=== PATIENT | female | born 2000 | race African-American/Black ===

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

== ENCOUNTER 2021-02-21 10:09 | Emergency (ER) | payer OTHER ==
--- NOTE | 2021-02-21 10:49 | ER ---
Nurse's Notes [facility] Name: Betty Dupree Age: 20 yrs Sex: Female : 2000 Arrival Date: 02/21/2021 Time: 10:09 Bed 15 Private MD: Diagnosis: Otalgia, left ear;Other otitis externa, left ear Presentation: 02/21 10:26 Chief complaint:. Coronavirus screen: Vaccine status: Patient reports receiving the 2nd ll1 dose of the covid vaccine. Client denies travel out of the [place] in the last 14 days. At this time, the client does not indicate any symptoms associated with coronavirus-19. Ebola Screen: Patient denies travel to an Ebola-affected area in the 21 days before illness onset. Risk Assessment: Do you want to hurt yourself or someone else? Patient reports no desire to harm self or others. Onset of symptoms was February 15, 2021. 10:26 Method Of Arrival: Ambulatory ll1 10:26 Acuity: NANDO 4 ll1 10:28 Chief complaint: Patient states: L ear pain, irritation, itching for 1 week. No fever. ll1 Initial Sepsis Screen: Does the patient meet any 2 criteria? No. Patient's initial sepsis screen is negative. Does the patient have a suspected source of infection? Yes: Other: ear. Historical: - Allergies: 10:25 No Known Allergies; ll1 - PMHx: 10:25 None; ll1 - PSHx: 10:25 Tonsillectomy; ll1 - Immunization history:: Client reports receiving the 2nd dose of the Covid vaccine. - Social history:: Smoking status: Patient denies any tobacco usage or history of. - Family history:: not pertinent. - Hospitalizations: : No recent hospitalization is reported. Screenin:41 Abuse screen: Denies threats or abuse. Denies injuries from another. Nutritional jt3 screening: No deficits noted. Tuberculosis screening: No symptoms or risk factors identified. Fall Risk None identified. Assessment: 10:41 General: Appears in no apparent distress. Behavior is calm, cooperative. Pain: jt3 Complains of pain in left ear Quality of pain is described as tingling. Neuro: No deficits noted. EENT: Reports Pt. states she feels she has something in her left ear. Endorses hard of hearing in left ear due to this. Denies dizziness. Alert and oriented x4. . Vital Signs: 10:28 BP 125 / 80; Pulse 70; Resp 17; Temp 97.2; Pulse Ox 100% ; Weight 79.38 kg; Height 5 ll1 ft. 0 in. (152.40 cm); Pain 8/10; 10:28 Body Mass Index 34.18 (79.38 kg, 152.40 cm) ll1 ED Course: 10:09 Patient arrived in ED. as 10:25 Arm band placed on Patient placed in an exam room, on a stretcher. ll1 10:26 Roebrt Martinez MD is Attending Physician. rn 10:26 Triage completed. ll1 10:30 Jax Pope, RN is Primary Nurse. jt3 10:41 Patient has correct armband on for positive identification. Bed in low position. Call jt3 light in reach. Side rails up X2. 10:41 No provider procedures requiring assistance completed. jt3 11:01 Patient did not have IV access during this emergency room visit. ss Administered Medications: No medications were administered Outcome: 10:48 Discharge ordered by . rn 11:01 Discharged to home ambulatory. ss 11:01 Condition: good 11:01 Discharge instructions given to patient, Instructed on discharge instructions, follow up and referral plans. medication usage, Demonstrated understanding of instructions, follow-up care, medications, Prescriptions given X 1. 11:02 Patient left the ED. ss Signatures: Sheyla Carrera Roman, MD MD rn Smirch, Shelby, RN RN Sarina Bess RN RN 1 Jax Pope RN RN jt3
--- NOTE | 2021-02-21 10:49 | EDPHYS ---
Physician Documentation [facility] Name: Betty Dupree Age: 20 yrs Sex: Female : 2000 Arrival Date: 02/21/2021 Time: 10:09 Bed 15 Private MD: ED Physician Robert Martinez HPI: 02/21 10:44 This 20 yrs old Black Female presents to ER via Ambulatory with complaints of Possible rn foreign Body In Ear, Ear Pain. 10:44 The patient presents with a foreign body sensation, a fullness, pain. The complaints rn affect the left ear. Onset: The symptoms/episode began/occurred 1 week(s) ago. Modifying factors: The symptoms are alleviated by nothing, the symptoms are aggravated by nothing. Associated signs and symptoms: Pertinent negatives: fever, rhinorrhea, shortness of breath, sore throat. Severity of symptoms: At their worst the symptoms were mild in the emergency department the symptoms are unchanged. The patient has not experienced similar symptoms in the past. The patient has not recently seen a physician. Patient reports left ear pain and itching. No drainage. No fever. Reports uses hearing aids all the time and left ear seems stopped up. Is not sure if there is a foreign body in it. Has tried washing it out and not working.. Historical: - Allergies: 10:25 No Known Allergies; ll1 - PMHx: 10:25 None; ll1 - PSHx: 10:25 Tonsillectomy; ll1 - Immunization history:: Client reports receiving the 2nd dose of the Covid vaccine. - Social history:: Smoking status: Patient denies any tobacco usage or history of. - Family history:: not pertinent. - Hospitalizations: : No recent hospitalization is reported. ROS: 10:44 Constitutional: Negative for fever, chills, and weight loss, Eyes: Negative for injury, rn pain, redness, and discharge, ENT: Positive for pain in left ear Neck: Negative for injury, pain, and swelling, Cardiovascular: Negative for chest pain, palpitations, and edema, Respiratory: Negative for shortness of breath, cough, wheezing, and pleuritic chest pain, Abdomen/GI: Negative for abdominal pain, nausea, vomiting, diarrhea, and constipation, MS/Extremity: Negative for injury and deformity, Skin: Negative for injury, rash, and discoloration, Neuro: Negative for headache, weakness, numbness, tingling, and seizure. Exam: 10:44 Constitutional: This is a well developed, well nourished patient who is awake, alert, rn and in no acute distress. Head/Face: Normocephalic, atraumatic. Eyes: Periorbital areas with no swelling, redness, or edema. ENT: Left auditory canal with erythema and signs of inflammation. Tympanic membrane normal without perforation/bulging/fluid behind. No foreign body identified Vital Signs: 10:28 BP 125 / 80; Pulse 70; Resp 17; Temp 97.2; Pulse Ox 100% ; Weight 79.38 kg; Height 5 ll1 ft. 0 in. (152.40 cm); Pain 8/10; 10:28 Body Mass Index 34.18 (79.38 kg, 152.40 cm) ll1 MDM: 10:26 Patient medically screened. rn 10:44 Differential diagnosis: otitis media, otitis externa, ruptured TM, foreign body, acute rn otalgia, cerumen impaction. Data reviewed: vital signs, nurses notes, and as a result, I will discharge patient. Counseling: I had a detailed discussion with the patient and/or guardian regarding: the historical points, exam findings, and any diagnostic results supporting the discharge/admit diagnosis, the need for outpatient follow up, to return to the emergency department if symptoms worsen or persist or if there are any questions or concerns that arise at home. Special discussion: I discussed with the patient/guardian in detail that at this point there is no indication for admission to the hospital. It is understood, however, that if the symptoms persist or worsen the patient needs to return immediately for re-evaluation. Administered Medications: No medications were administered Disposition Summary: 02/21/21 10:48 Discharge Ordered Location: Home rn Problem: new rn Symptoms: have improved rn Condition: Stable rn Diagnosis - Otalgia, left ear rn - Other otitis externa, left ear rn Followup: rn - With: Private Physician - When: As needed - Reason: Recheck today's complaints, Re-evaluation by your physician Discharge Instructions: - Discharge Summary Sheet rn - Otitis Externa rn - Earache, Adult rn Forms: - Medication Reconciliation Form rn - Thank You Letter rn - Antibiotic internet consultant - Prescription Opioid Use rn Prescriptions: - Cortisporin-TC 3.3-3-10-0.5 mg/mL Otic Suspension - instill 4 drops by OTIC route every 6 hours; 1 bottle; Refills: 0, Product rn Selection Permitted Signatures: Robert Martinez MD MD rn Lewis, Lynsay, RN RN ll1
[2021-02-21 11:15] VITALS: BP 125/80; TEMP 97.2; O2SAT 100
== END 2021-02-21 11:02 | disposition home or self-care (01) ==
LOC: ER 10:09
DX: H60.8X2 Other otitis externa, left ear (principal)
CPT/HCPCS: 99282

== ENCOUNTER 2021-02-27 11:51 | Emergency (ER) | payer OTHER ==
--- NOTE | 2021-02-27 13:49 | RAD REPORT ---
EXAM DESCRIPTION: Aryan Perez (2 Views)02/27/2021 1:41 pm CLINICAL HISTORY: Cough COMPARISON: 2018 FINDINGS: The lungs appear clear of acute infiltrate. The heart is normal size IMPRESSION: No acute abnormalities displayed
[2021-02-27 14:33] LABS: SARS-COV-2 RT PCR NEGATIVE (NEGATIVE)
--- NOTE | 2021-02-27 14:45 | EDPHYS ---
Physician Documentation [facility] Name: Betty Dupree Age: 20 yrs Sex: Female : 2000 Arrival Date: 02/27/2021 Time: 11:56 Bed Waiting Private MD: ED Physician Freddie Wetzel HPI: 02/27 14:44 This 20 yrs old Black Female presents to ER via Ambulatory with complaints of Fever, kb Sore Throat, Headache, Weakness. 14:44 The patient has not recently seen a physician. kb 14:44 The patient or guardian reports cough, flu symptoms, low-grade fever, myalgias, no kb appetite. Onset: The symptoms/episode began/occurred yesterday. Severity of symptoms: At their worst the symptoms were moderate, in the emergency department the symptoms are unchanged. Modifying factors: The symptoms are alleviated by nothing, the symptoms are aggravated by nothing. Associated signs and symptoms: Pertinent positives: fever, rhinorrhea, sore throat. The patient has not experienced similar symptoms in the past. 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 - Social history:: Smoking status: Patient denies any tobacco usage or history of. ROS: 14:43 Abdomen/GI: Negative for abdominal pain, nausea, vomiting, diarrhea, and constipation. kb 14:43 Constitutional: Positive for body aches, chills, fatigue, fever, malaise. 14:43 ENT: Positive for rhinorrhea, sinus congestion, sore throat. 14:43 Respiratory: Positive for cough, Negative for dyspnea on exertion, hemoptysis, orthopnea, pleurisy, shortness of breath, sputum production, wheezing. 14:43 Neuro: Positive for headache. 14:43 All other systems are negative. Exam: 14:44 Constitutional: This is a well developed, well nourished patient who is awake, alert, kb and in no acute distress. Head/Face: Normocephalic, atraumatic. ENT: Moist Mucous membranes Cardiovascular: Regular rate and rhythm with a normal S1 and S2. No gallops, murmurs, or rubs. No pulse deficits. Respiratory: Respirations even and unlabored. No increased work of breathing, no retractions or nasal flaring. Skin: Warm, dry with normal turgor. Normal color. MS/ Extremity: Pulses equal, no cyanosis. Neurovascular intact. Full, normal range of motion. Neuro: Awake and alert, GCS 15, oriented to person, place, time, and situation. Moves all extremities. Normal gait. Psych: Awake, alert, with orientation to person, place and time. Behavior, mood, and affect are within normal limits. Vital Signs: 13:03 BP 119 / 73; Pulse 76; Resp 18 S; Temp 97.7(O); Pulse Ox 100% on R/A; aa5 MDM: 13:09 Patient medically screened. kb 14:41 Data reviewed: vital signs, nurses notes. Data interpreted: Pulse oximetry: on room air kb is 100 %. Interpretation: normal. Counseling: I had a detailed discussion with the patient and/or guardian regarding: the historical points, exam findings, and any diagnostic results supporting the discharge/admit diagnosis, the need for outpatient follow up, a family practitioner, to return to the emergency department if symptoms worsen or persist or if there are any questions or concerns that arise at home. 02/27 13:08 Order name: COVID-19/FLU A+B (Document "Date of Onset" if Symptomatic) 02/27 13:08 Order name: Strep 02/27 13:08 Order name: Chest Pa And Lat (2 Views) XRAY; Complete Time: 13:52 02/27 13:09 Order name: COVID-19/FLU A+B; Complete Time: 14:36 EDMS 02/27 13:09 Order name: Group A Streptococcus Rapid Sc; Complete Time: 14:19 EDMS 02/27 14:19 Order name: Throat Culture EDMS Administered Medications: No medications were administered Disposition: 17:32 Co-signature as Attending Physician, Freddie Wetzel MD I agree with the assessment and kdr plan of care. Disposition Summary: 02/27/21 14:45 Discharge Ordered Location: Home kb Condition: Stable kb Diagnosis - Acute upper respiratory infection, unspecified kb Followup: kb - With: Emergency Department - When: As needed - Reason: Worsening of condition Followup: kb - With: Private Physician - When: 2 - 3 days - Reason: Recheck today's complaints, Continuance of care, Re-evaluation by your physician Discharge Instructions: - Discharge Summary Sheet kb - Upper Respiratory Infection, Adult, [id number] kb - Viral Respiratory Infection, [id number] kb Forms: - Medication Reconciliation Form kb - Thank You Letter kb - Antibiotic Education kb - Prescription Opioid Use kb - Work release form iw Signatures: Dispatcher [employer] EDJohana Duncan, RAW MATERIAL PLANNER-C KAYLIE-Freddie Norwood MD MD kdr Calderon, Audri, RN RN aa5
--- NOTE | 2021-02-27 14:45 | ER ---
Nurse's Notes [facility] Name: Betty Dupree Age: 20 yrs Sex: Female : 2000 Arrival Date: 02/27/2021 Time: 11:56 Bed Waiting Private MD: Diagnosis: Acute upper respiratory infection, unspecified Presentation: 02/27 13:03 Chief complaint: Patient states: sore throat, cough, headache, chills, and body aches aa5 since yesterday. Coronavirus screen: cough unrelated to allergies, headache, muscle pain, sore throat. Ebola Screen: No symptoms or risks identified at this time. Initial Sepsis Screen: Does the patient meet any 2 criteria? No. Patient's initial sepsis screen is negative. Does the patient have a suspected source of infection? No. Patient's initial sepsis screen is negative. Risk Assessment: Do you want to hurt yourself or someone else? Patient reports no desire to harm self or others. Onset of symptoms was February 2021. 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 - Social history:: Smoking status: Patient denies any tobacco usage or history of. Assessment: 15:08 Neuro: Level of Consciousness is awake, alert, obeys commands, Oriented to person, aa5 place, time, situation. Respiratory: Airway is patent Respiratory effort is even, unlabored, Respiratory pattern is regular, symmetrical. Derm: Skin is dry, Skin is normal, Skin temperature is warm. Vital Signs: 13:03 BP 119 / 73; Pulse 76; Resp 18 S; Temp 97.7(O); Pulse Ox 100% on R/A; aa5 ED Course: 11:56 Patient arrived in ED. as 13:03 Arm band placed on. aa5 13:05 Triage completed. aa5 13:05 Johana Rivera FNP-C is [facility]. kb 13:05 Freddie Wetzel MD is Attending Physician. kb 13:11 COVID swab sent to lab. Flu and/or RSV swab sent to lab. Strep swab sent to lab. aa5 13:41 Chest Pa And Lat (2 Views) XRAY In Process Unspecified. EDMS 15:08 No provider procedures requiring assistance completed. Patient did not have IV access aa5 during this emergency room visit. Administered Medications: No medications were administered Outcome: 14:45 Discharge ordered by . tiara 15:08 Discharged to home ambulatory. aa5 15:08 Condition: stable 15:08 Discharge instructions given to patient, Instructed on discharge instructions, follow up and referral plans. Demonstrated understanding of instructions, follow-up care. 15:11 Patient left the ED. aa5 Signatures: Dispatcher [employer] EDJohana Duncan, MANAGER RESEARCH AND DEVELOPMENT-C MANAGER RESEARCH AND DEVELOPMENT-Sheyla Cueva Audri, RN RN aa5 Corrections: (The following items were deleted from the chart) 13:06 13:03 Chief complaint: Patient states: sore throat, cough, headache, chills, and body aa5 aches. aa5
[2021-02-27 15:21] VITALS: BP 119/73; TEMP 97.7; O2SAT 100
== END 2021-02-27 15:11 | disposition home or self-care (01) ==
LOC: ER 11:51
DX: J06.9 Acute upper respiratory infection, unspecified (principal); Z20.822 Contact with and (suspected) exposure to COVID-19
CPT/HCPCS: 87070; 87081; 0240U; 71046; 99283

== ENCOUNTER 2021-04-14 13:28 | Emergency (ER) | payer OTHER ==
[2021-04-14 15:28] LABS: SARS-COV-2 RT PCR POSITIVE (NEGATIVE)
--- NOTE | 2021-04-14 16:12 | EDPHYS ---
Physician Documentation [facility] Name: Betty Dupree Age: 20 yrs Sex: Female : 2000 Arrival Date: 04/14/2021 Time: 13:29 Bed Treatment Private MD: ED Physician Esperanza Maynard HPI: 04/14 16:05 This 20 yrs old Black Female presents to ER via Ambulatory with complaints of Cough, cp Headache, Runny Nose, Sore Throat. 16:05 The patient or guardian reports cough, that is intermittent. Onset: The cp symptoms/episode began/occurred yesterday. Associated signs and symptoms: Pertinent positives: rhinorrhea, sore throat, headache. Patient reports she is vaccinated against COVID-19. 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 - Social history:: Smoking status: Patient denies any tobacco usage or history of. ROS: 16:07 Eyes: Negative for injury, pain, redness, and discharge. cp 16:07 Constitutional: Positive for body aches, Negative for fever, poor PO intake. 16:07 ENT: Positive for sore throat, Negative for drainage from ear(s), ear pain, difficulty swallowing, difficulty handling secretions. 16:07 Respiratory: Positive for cough, Negative for shortness of breath, wheezing. 16:07 Abdomen/GI: Negative for abdominal pain, nausea, vomiting, and diarrhea. 16:07 Neuro: Positive for headache, Negative for altered mental status, weakness. 16:07 All other systems are negative. Exam: 16:08 Head/Face: Normocephalic, atraumatic. cp 16:08 Constitutional: The patient appears in no acute distress, alert, awake, non-toxic, well developed, well nourished. 16:08 Eyes: Periorbital structures: appear normal, Conjunctiva: normal, no exudate, no injection, Lids and lashes: appear normal, bilaterally. 16:08 ENT: External ear(s): are unremarkable, Nose: is normal, Mouth: Lips: moist, Oral mucosa: moist, Posterior pharynx: Airway: no evidence of obstruction, patent. 16:08 Neck: ROM/movement: is normal, is supple, without pain, no range of motions limitations, no meningismus, Lymph nodes: no appreciated lymphadenopathy. 16:08 Chest/axilla: Inspection: normal. 16:08 Cardiovascular: Rate: normal. 16:08 Respiratory: the patient does not display signs of respiratory distress, Respirations: normal, no use of accessory muscles, no retractions, labored breathing, is not present, Breath sounds: are clear throughout, no decreased breath sounds, no stridor, no wheezing. 16:08 Abdomen/GI: Exam negative for discomfort, distension, guarding, Inspection: abdomen appears normal. 16:08 Neuro: Orientation: to person, place \T\ time. Mentation: is normal, Motor: moves all fours, strength is normal, Sensation: is normal. Vital Signs: 13:41 BP 125 / 91; Pulse 79; Resp 17; Temp 98.1(TE); Pulse Ox 99% on R/A; Pain 8/10; tw2 MDM: 15:59 Patient medically screened. cp 16:10 Differential Diagnosis: Bronchitis Influenza Viral Syndrome Pneumonia Other COVID-19. cp Data reviewed: vital signs, nurses notes, lab test result(s), and as a result, I will discharge patient. 04/14 13:36 Order name: Strep; Complete Time: 15:59 jh5 04/14 15:59 Interpretation: Reviewed. cp 04/14 13:36 Order name: Group A Streptococcus Rapid Sc; Complete Time: 15:59 EDMS 04/14 13:59 Order name: Throat Culture EDMS Administered Medications: No medications were administered Disposition Summary: 04/14/21 16:12 Discharge Ordered Location: Home cp Problem: new cp Symptoms: are unchanged cp Condition: Stable cp Diagnosis - SARS-associated coronavirus as the cause of diseases classified elsewhere cp Followup: cp - With: Private Physician - When: 2 - 3 days - Reason: Worsening of condition Discharge Instructions: - COVID-19 cp - Things to Know about the COVID-19 Pandemic - [facility] cp - Discharge Summary Sheet tw2 - 10 Things You Can Do to Manage Your COVID-19 Symptoms at Home - [facility] cp - COVID-19: Quarantine vs. Isolation - [facility] cp - Prevent the Spread of COVID-19 if You Are Sick - [facility] cp Forms: - Work release form tw2 - Medication Reconciliation Form cp - Thank You Letter cp - Antibiotic Education cp - Prescription Opioid Use cp Prescriptions: - Ibuprofen 800 mg Oral Tablet - take 1 tablet by ORAL route every 8 hours As needed take with food; 30 tablet; cp Refills: 0, Product Selection Permitted Addendum: 04/16/2021 16:20 Co-signature as Attending Physician, Esperanza Maynard MD I agree with the assessment and s p3 plan of care. Signatures: Dispatcher [employer] EDMS Deric Moses PA PA cp Wise, Tara, RN RN tw2 Esperanza Maynard MD MD sp3
--- NOTE | 2021-04-14 16:12 | ER ---
Nurse's Notes [facility] Name: Betty Dupree Age: 20 yrs Sex: Female : 2000 Arrival Date: 04/14/2021 Time: 13:29 Bed Treatment Private MD: Diagnosis: SARS-associated coronavirus as the cause of diseases classified elsewhere Presentation: 04/14 13:38 Chief complaint: Patient states: i started feeling bad yesterday and today it has tw2 gotten worse. cough, headache, runny nose and sore throat. no fever. Coronavirus screen: congestion, cough unrelated to allergies, sore throat, Client presents with at least one sign or symptom that may indicate coronavirus-19. Standard/surgical mask placed on the client. Provider contacted for isolation considerations. Ebola Screen: Patient denies travel to an Ebola-affected area in the 21 days before illness onset. 13:38 Method Of Arrival: Ambulatory tw2 13:47 Initial Sepsis Screen: Does the patient meet any 2 criteria? No. Patient's initial tw2 sepsis screen is negative. Does the patient have a suspected source of infection? No. Patient's initial sepsis screen is negative. Risk Assessment: Do you want to hurt yourself or someone else? Patient reports no desire to harm self or others. Onset of symptoms was April 14, 2021. 13:47 Acuity: NANDO 4 tw2 Triage Assessment: 13:40 Headache History: The patient has had previous headaches and this one is similar to tw2 previous episodes. General: Appears in no apparent distress. obese, well groomed, Behavior is calm, cooperative, appropriate for age. Pain: Complains of pain in uvula, left aspect of posterior pharynx and right aspect of posterior pharynx Pain currently is 8 out of 10 on a pain scale. Pain began 1 day ago. Also complains of no other associated symptoms. Neuro: Level of Consciousness is awake, alert, obeys commands, Oriented to person, place, time, situation. 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 - Social history:: Smoking status: Patient denies any tobacco usage or history of. Screenin:47 Abuse screen: Denies threats or abuse. Nutritional screening: No deficits noted. tw2 Tuberculosis screening: No symptoms or risk factors identified. Fall Risk None identified. Assessment: 14:57 Reassessment: per Ameena in Lab result for COVID is still pending at this time. tw2 Vital Signs: 13:41 BP 125 / 91; Pulse 79; Resp 17; Temp 98.1(TE); Pulse Ox 99% on R/A; Pain 8/10; tw2 ED Course: 13:29 Patient arrived in ED. as 13:39 Arm band placed on. tw2 13:47 Triage completed. tw2 15:38 Deric Moses PA is PHCP. cp 15:38 Esperanza Maynard MD is Attending Physician. cp 16:00 Bed in low position. Call light in reach. tw2 16:25 No provider procedures requiring assistance completed. Patient did not have IV access jh5 during this emergency room visit. 16:29 Valerie Giles, RN is Primary Nurse. jh5 Administered Medications: No medications were administered Outcome: 16:12 Discharge ordered by MD. cp 16:25 Discharged to home ambulatory. jh5 16:25 Condition: good 16:25 Discharge instructions given to patient, Instructed on discharge instructions, follow up and referral plans. medication usage, safety practices, Demonstrated understanding of instructions. 16:29 Patient left the ED. 5 Signatures: Sheyla Carrera as Deric Moses PA PA cp Anita Fisher RN RN tw2 Valerie Giles, JESI RN [facility]
[2021-04-14 16:36] VITALS: BP 125/91; TEMP 98.1; O2SAT 99
== END 2021-04-14 16:29 | disposition home or self-care (01) ==
LOC: ER 13:28
DX: U07.1 COVID-19 (principal)
CPT/HCPCS: 87070; 87081; 0240U; 99281

== ENCOUNTER 2022-04-03 07:44 | Emergency (ER) | payer OTHER ==
--- OUTSIDE RECORDS SUMMARY | 2022-04-03 07:47 | XMS REPORT | Continuity of Care Document ---
:2000 Author Organization [facility] t Address [address] [place] [address] Care Team Providers Name Role Phone Pcp, Patient Does Not Have A Primary Care Physician +[id number] TERESA LADD Attending Clinician Unavailable Screening/Hack, [employer] Attending Clinician Unavailable Teresa Ladd PhD Attending Clinician Doctor Unassigned, [place] Attending Clinician Unavailable Kathia Lynn Attending Clinician Screening/Hack, Sia Audio Attending Clinician Unavailable CAREN WILSON Attending Clinician Unavailable Mary Bailey Attending Clinician Caren Blanchard Attending Clinician She Stephens Attending Clinician Unavailable Nina Zuleta Attending Clinician MARY DICKERSON Attending Clinician Unavailable Sharmila Dumont Attending Clinician Jose Bobo Attending Clinician 1, Gal [employer] Attending Clinician Unavailable Payers Payer Name Policy Type Policy Number Effective Date Expiration Date Kiesha [employer] [id number] 2022 KIDS 00:00:00 Problems Condition Condition Condition Status Onset Resolution Last Treating Co mments Source Name Details Category Date Date Treatment Clinician Date 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rence Branch Allergies, Adverse Reactions, Alerts Allergy Allergy Status Severity Reaction(s) Onset Inactive Treating Comm ents Source Name Type Date Date Clinician NO KNOWN Drug Active [facility] ALLERGIE Class [facility] [place] [facility] Social History Social Habit Start Date Stop Date Quantity Comments Source Exposure to 2022-02-27 2022-03-09 Not sure [facility] SARS-CoV-2 (event) 00:00:00 08:36:00 Medica l Branch Sex Assigned At [birth year] [facility] 00:00:00 00:00:00 Medical Branch Smoking Status Start Date Stop Date Source Tobacco smoking consumption [facility] Medical unknown Branch Medications Ordered Filled Start Stop Current Ordering Indication Dosage Frequency Signature Comments Components Source Medication Medication Date Date Medication? Clinician (SIG) Name Name FLUTICASONE Yes Use in Univ ers PROPIONATE 7-02 each ity of (FLONASE 14:00: nostril. [place] NASAL) [address] [place] [address] CETIRIZINE Yes Take by Univ ers HCL (ZYRTEC 7-02 mouth. ity of ORAL) 14:00: [address] FLUTICASONE Yes Use in Univ ers PROPIONATE 7-02 each ity of (FLONASE 14:00: nostril. [place] NASAL) [address] [place] [address] CETIRIZINE Yes Take by Univ ers HCL (ZYRTEC 7-02 mouth. ity of ORAL) 14:00: [address] FLUTICASONE 2018- Yes Use in Univ ers PROPIONATE 7-02 each ity of (FLONASE 14:00: nostril. [place] NASAL) [address] [place] [address] CETIRIZINE Yes Take by Univ ers HCL (ZYRTEC 7-02 mouth. ity of ORAL) 14:00: [address] Branch FLUTICASONE 2018- Yes Use in Univ ers PROPIONATE 7-02 each ity of (FLONASE 14:00: nostril. [place] NASAL) [address] [place] [address] CETIRIZINE Yes Take by Univ ers HCL (ZYRTEC 7-02 mouth. ity of ORAL) 14:00: [address] FLUTICASONE 2019- Yes Use in Univ ers PROPIONATE 7-02 each ity of (FLONASE 14:00: nostril. [place] NASAL) [address] [place] [address] CETIRIZINE Yes Take by Univ ers HCL (ZYRTEC 7-02 mouth. ity of ORAL) 14:00: [address] FLUTICASONE Yes Use in Univ ers PROPIONATE 7-02 each ity of (FLONASE 14:00: nostril. [place] NASAL) [address] [place] [address] CETIRIZINE Yes Take by Univ ers HCL (ZYRTEC 7-02 mouth. ity of ORAL) 14:00: [address] FLUTICASONE Yes Use in Univ ers PROPIONATE 7- each ity of (FLONASE 14:00: nostril. [place] NASAL) [address] [place] [address] CETIRIZINE Yes Take by Univ ers HCL (ZYRTEC 7-02 mouth. ity of ORAL) 14:00: [address] Procedures Procedure Date / Time Performing Clinician Source Performed AUTHORIZATION FOR 2021-12-12 05:01:00 Doctor Unassigned, No [facility] RELEASE OF PHI Name [facility] Branch Encounters Start End Encounter Admission Attending Care Care Encounter Source Date/Time Date/Time Type Type Clinicians Facility Department ID 2022-03-09 2022-03-09 Outpatient R [facility] [id number] Univers 08:30:00 11:06:58 TERESA ity [facility] 2022-03-09 2022-03-09 Ancillary Screening/Hack, [employer] UN [facility]ERSIT 1.2.840.114 [id number] Univers 08:30:00 11:06:58 Visit Teresa Ladd [id number] ity of [facility] [id number] [facility] as BANK [phone] [facility] BLDG. 141 Branch 2022-03-08 2022-03-08 Outpatient R [facility] [id number] Univers 11:00:00 11:00:00 ity of [facility] 2022-03-08 2022-03-08 Outpatient R [facility] [id number] Univers 11:00:00 11:00:00 ity [facility] 2021-12-12 2021-12-12 Orders Doctor ARPITA 1.2.840.114 [id number] Univers 00:00:00 00:00:00 Only Unassigned, MALIK [id number] ity of [place] [facility] [id number] [place] as [phone] [facility] [address] [place] 2021-11-02 2021-11-[address] [facility] [place] 1.2.840.1 [id number] Univers 11:00:00 11:30:00 Visit Teresa Ladd [id number] ity of [place] [id number] [place] as BANK [phone] [facility]. [address] [place] 2021-11-02 2021-11-02 Outpatient R WIL[facility]O [facility] [id number] Univers 11:00:00 11:00:00 TERESA ithussain [facility] 2021-10-25 2021-10-25 Telephone Screening/H [facility] 1.2.840.114 [id number] Univers 00:00:00 00:00:00 Sia perdomo [id number] ity of Audio [facility] [id number] [phone] [facility] [address] [place] 2021-07-20 2021-07-20 Outpatient R TAMI [facility] [id number] Univers 10:30:00 11:50:54 CAREN ity of [facility] 2021-07-20 2021-07-20 Ancillary Mary Dickerson [facility] 1. 2.840.114 [id number] Univers 10:30:00 11:50:54 Visit Caren Wilson Hussain [id number] ity of [place] [id number] [place] as BANK [phone] [facility]. [address] [place] 2021-06-14 2021-06-14 Telephone Kat [facility] [id number] Univers 00:00:00 00:00:00 She GE [id number] ity of [place]2.686 [place] [phone] [address] 2021-05-05 2021-05-05 Outpatient R [facility] [id number] Univers 09:00:00 09:12:58 [facility] 2021-05-05 2021-05-05 Ancillary Surface, [facility] 1.2 .840.114 [id number] Univers 09:00:00 09:12:58 Visit Ladd, Teresa [place] [id number] ity of [facility] 4.2.7.2.686 [place] as BANK [phone] [facility]. [address] 2021-05-05 2021-05-05 Outpatient R [facility]O [facility] [id number] Univers 08:30:00 09:12:29 TERESA ithussain [facility] 2021-05-05 2021-05-05 Ancillary Surface, [facility] 1.2 .840.114 [id number] Univers 08:30:00 09:12:29 Visit Teresa Ladd [id number] ity of [facility] [id number] [place] as BANK [phone] [facility]. [address] 2021-05-05 2021-05-05 Orders Doctor ARPITA 1.2.840.114 [id number] Univers 00:00:00 00:00:00 Only Unassigned, MALIK [id number] ity of [place] [facility] 4.2.7.2.686 [place] as [phone] [facility] [address] 2021-04-26 2021-04-26 Telephone Kat [facility] [id number] Univers 00:00:00 00:00:00 She GE [id number] ity of [facility] [place].7.2.[place] [phone] [facility] [address] [place] 2021-03-23 2021-03-23 [facility] [id number] Univers 09:00:00 10:11:13 [facility] 2021-03-23 2021-03-23 Ancillary Nina Mathias UN[facility]ERSIT 1.2.84 [id number] Univers 09:00:00 10:11:13 Visit Teresa Ladd Y [id number] ity of [place] [id number] [place] as BANK [phone] [facility]. [address] [place] 2021-02-24 2021-02-24 [facility] [id number] Univers 08:30:00 08:30:00 [facility] 2020-06-17 2020-06-17 Ancillary Sharmila Luque UNIVERSIT 1.2.840.11 [id number] Univers 15:17:52 15:59:55 Visit Jose Agrawal Y [id number] ity of Mary Dickerson [place] 4.2.7.2.686 [place] BANK [phone] [facility]. [address] [place] 2020-06-17 2020-06-17 Outpatient R TUAN [facility] [id number] Univers 15:00:00 15:00:00 MARY [facility] 2019-03-20 2019-06-25 Ancillary Screening/Ashley, [facility] Audio [facility]IT 1.2.840.114 [id number] Univers 13:14:54 14:47:47 Visit Teresa Ladd Y [id number] ity of [place] 4.2.7.2.686 [place] as BANK [phone] [facility]. [address] [place] 2019-05-15 2019-05-15 Ancillary Mary Dickerson UNIVERSIT 1. 2.840.114 [id number] Univers 09:45:21 10:15:21 Visit Teresa Ladd Y [id number] ity of [place] 4.2.7.2.686 [place] as BANK [phone] [facility]. [address] [place] 2019-05-15 2019-05-15 Pal Rushing UNIVERSIT [id number] Univers 00:00:00 00:00:00 (Out) Audio Sound Y [id number] ity of Suite [place] [id number] [place] as BANK [phone] [facility] [address] 2019-03-20 2019-03-20 [facility] [id number] Univers 16:00:00 16:00:00 TERESA ity of [facility] 2019-01-09 2019-01-09 Orders Doctor ARPITA 1.2.840.114 [id number] Univers 00:00:00 00:00:00 Only Unassigned, MALIK 350.1.13.10 ity of [place] [facility] 4.2.7.2.686 [place] as [phone] [facility] [address] 2018-12-15 2018-12-15 [facility] [id number] Univers 00:00:00 00:00:00 She EG [id number] ity of [facility] [place].7.2.[place] [phone] [facility] [address] 2018-11-07 2018-11-07 Ancillary DIVYA [place] 1.2.840.114 [id number] Univers 12:39:33 13:39:33 Visit Mary Rock [id number] ity of [facility] 4.2.7.2.686 [place] as BANK [phone] [facility]. [address] 2018-11-06 2018-11-06 Case [facility] [id number] Univers 00:00:00 00:00:00 Management Mary GE [id number] ity of [facility] [id number] [phone] [facility] [address] 2010-07-27 2010-07-27 Orders Doctor ARPITA 1.2.840.114 [id number] Univers 00:00:00 00:00:00 Only Unassigned, MALIK 350.1.13.10 ity of [place] [facility] 4.2.7.2.686 [place] as [phone] [facility] [address] Results This patient has no known results.
[2022-04-03] MEDS ORDERED: IBUPROFEN 400 MG TAB ONE (08:03)
[2022-04-03] MEDS ORDERED: IBUPROFEN 200 MG TAB PO ONE (08:04)
[2022-04-03 09:29] LABS: SARS-COV-2 RT PCR NEGATIVE (NEGATIVE)
--- NOTE | 2022-04-03 09:46 | EDPHYS ---
Physician Documentation [facility] Name: Betty Dupree Age: 21 yrs Sex: Female : 2000 Arrival Date: 04/03/2022 Time: 07:46 Bed 12 Private MD: ED Physician Deric Maloney HPI: 04/03 07:59 This 21 yrs old Black Female presents to ER via Ambulatory with complaints of Sore pm1 Throat. 07:59 The patient presents with sore throat. The patient describes throat pain as raw, pm1 scratchy. Onset: The symptoms/episode began/occurred yesterday. Severity of symptoms: in the emergency department the symptoms have improved, with tylenol. Modifying factors: The symptoms are alleviated by over the counter medications, Patient's oral intake status: good unaware of sick contact. Associated signs and symptoms: Pertinent positives: cough, fever, bodyaches, Pertinent negatives diarrhea, vomiting. The patient has not experienced similar symptoms in the past. The patient has not recently seen a physician. 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 - Social history:: Smoking status: Patient denies any tobacco usage or history of. ROS: 07:59 Constitutional: Negative for fever, chills, and weight loss, Cardiovascular: Negative pm1 for chest pain, palpitations, and edema. 07:59 Abdomen/GI: Negative for abdominal pain, nausea, vomiting, diarrhea, and constipation, Back: Negative for injury and pain, MS/Extremity: Negative for injury and deformity, Skin: Negative for injury, rash, and discoloration, Neuro: Negative for headache, weakness, numbness, tingling, and seizure. 07:59 ENT: Positive for sore throat, Negative for ear pain. 07:59 Neck: Positive for swollen nodes. 07:59 Respiratory: Positive for cough, with no reported sputum, Negative for shortness of breath. 07:59 All other systems are negative. Exam: 07:59 Constitutional: This is a well developed, well nourished patient who is awake, alert, pm1 and in no acute distress. Head/Face: Normocephalic, atraumatic. 07:59 Skin: Warm, dry with normal turgor. Normal color with no rashes, no lesions, and no evidence of cellulitis. MS/ Extremity: Pulses equal, no cyanosis. Neurovascular intact. Full, normal range of motion. 07:59 Eyes: Exam is negative for acute changes, Periorbital structures: no acute changes, Extraocular movements: no acute changes, Conjunctiva: no acute changes, no injection. 07:59 ENT: External ear(s): no acute changes, Ear canal(s): no acute changes, TM's: no acute changes, Mouth: no acute changes, Lips: normal, moist, Oral mucosa: normal, pink and intact, moist, Posterior pharynx: Airway: no evidence of obstruction, Tonsils: bilaterally enlarged, with erythema, no exudate, no ulcerations, peritonsillar mass, is not appreciated. 07:59 Neck: Lymph nodes: lymphadenopathy is appreciated, anterior cervical nodes. 07:59 Cardiovascular: Exam negative for acute changes, Rate: normal, Rhythm: regular, Pulses: no pulse deficits are appreciated, Heart sounds: normal, normal S1and S2. 07:59 Respiratory: Exam negative for acute changes, respiratory distress, shortness of breath. 07:59 Neuro: Exam negative for acute changes, Orientation: is normal, Mentation: is normal, Motor: is normal, moves all fours, Gait: is steady, at a normal pace, without difficulty. Vital Signs: 07:54 BP 134 / 90; Pulse 107; Resp 17; Temp 98.7; Pulse Ox 100% on R/A; Weight 76.2 kg; ll1 Height 5 ft. 0 in. (152.40 cm); Pain 9/10; 07:54 Body Mass Index 32.81 (76.20 kg, 152.40 cm) ll1 MDM: 07:52 Patient medically screened. pm1 08:04 Data reviewed: vital signs. Data interpreted: Pulse oximetry: on room air is 100 %. pm1 Interpretation: normal. 09:38 Differential diagnosis: group A strep tonsillitis, influenza, peritonsillar abscess pm1 pharyngitis, tonsillitis, upper respiratory infection, Covid. 09:44 Counseling: I had a detailed discussion with the patient and/or guardian regarding: the pm1 historical points, exam findings, and any diagnostic results supporting the discharge/admit diagnosis, lab results, the need for outpatient follow up, to return to the emergency department if symptoms worsen or persist or if there are any questions or concerns that arise at home. 09:57 ED course: lab called to report patient is positive for RSV. pm1 04/03 07:59 Order name: Strep; Complete Time: 09:47 pm1 04/03 07:59 Order name: COVID-19/FLU A+B; Complete Time: 09:31 pm1 04/03 09:59 Order name: Throat Culture EDMS Administered Medications: 08:04 Drug: Ibuprofen 600 mg Route: PO; ll1 10:01 Follow up: Response: No adverse reaction 1 09:55 Drug: Decadron (dexamethasone) 10 mg Route: IM; Site: right vastus lateralis; ll1 Disposition Summary: 04/03/22 09:44 Discharge Ordered Location: Home pm1 Problem: new pm1 Symptoms: have improved pm1 Condition: Stable pm1 Diagnosis - Acute pharyngitis, unspecified pm1 Followup: pm1 - With: Emergency Department - When: As needed - Reason: Worsening of condition Followup: pm1 - With: Private Physician - When: 2 - 3 days - Reason: Recheck today's complaints, Continuance of care, Re-evaluation by your physician Discharge Instructions: - Pharyngitis pm1 - Respiratory Syncytial Virus Infection, Adult pm1 - Discharge Summary Sheet ll1 Forms: - Medication Reconciliation Form pm1 - Thank You Letter pm1 - Antibiotic Education pm1 - Work release form ll1 - Prescription Opioid Use pm1 Signatures: Dispatcher [employer] EDMS Richard Castillo NP [employer] pm1 Sarina Bess, RN RN ll1
--- NOTE | 2022-04-03 09:46 | ER ---
Nurse's Notes [facility] Name: Betty Dupree Age: 21 yrs Sex: Female : 2000 Arrival Date: 04/03/2022 Time: 07:46 Bed 12 Private MD: Diagnosis: Acute pharyngitis, unspecified Presentation: 04/03 07:54 Chief complaint: Patient states: Sore throat, body aches, congestion, fever since ll1 yesterday. Coronavirus screen: Vaccine status: Patient reports receiving the 2nd dose of the covid vaccine. Client denies travel out of the [place] in the last 14 days. congestion, fatigue, fever, headache, muscle pain, sore throat, Client presents with at least one sign or symptom that may indicate coronavirus-19. Standard/surgical mask placed on the client. Ebola Screen: Patient denies travel to an Ebola-affected area in the 21 days before illness onset. Initial Sepsis Screen: Does the patient meet any 2 criteria? HR > 90 bpm. No. Patient's initial sepsis screen is negative. Does the patient have a suspected source of infection? Yes: Other: sore throat. Risk Assessment: Do you want to hurt yourself or someone else? Patient reports no desire to harm self or others. Onset of symptoms was April 02, 2022. 07:54 Method Of Arrival: Ambulatory ll1 07:54 Acuity: NANDO 4 ll1 Triage Assessment: 07:56 General: Appears uncomfortable, Behavior is calm, cooperative, appropriate for age. ll1 Pain: Complains of pain in throat Pain currently is 9 out of 10 on a pain scale. Quality of pain is described as aching, throbbing, Pain began 1 day ago. EENT: Reports nasal congestion pain when swallowing. Neuro: No deficits noted. Cardiovascular: No deficits noted. Respiratory: No deficits noted. Musculoskeletal: Reports pain in body aches. 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 - Social history:: Smoking status: Patient denies any tobacco usage or history of. Screenin:57 [facility] ED Fall Risk Assessment (Adult) Score/Fall Risk Level 0 - 2 = Low Risk ll1 Oriented to surroundings, Maintained a safe environment, Educated pt \T\ family on fall prevention, incl call for assistance when getting out of bed, Hourly rounding (assess needs \T\ fall precautionary measures) done. Abuse screen: Denies threats or abuse. Nutritional screening: No deficits noted. Tuberculosis screening: No symptoms or risk factors identified. Assessment: 07:57 Respiratory: Airway is patent Respiratory effort is even, unlabored, Breath sounds are ll1 clear bilaterally. EENT:. 08:10 Reassessment: No changes from previously documented assessment. Patient and/or family ll1 updated on plan of care and expected duration. Pain level reassessed. Patient is alert, oriented x 3, equal unlabored respirations, skin warm/dry/pink. 09:16 Reassessment: Patient appears in no apparent distress at this time. No changes from ll1 previously documented assessment. Patient and/or family updated on plan of care and expected duration. Pain level reassessed. 09:16 EENT: Throat is reddened bilaterally. ll1 Vital Signs: 07:54 BP 134 / 90; Pulse 107; Resp 17; Temp 98.7; Pulse Ox 100% on R/A; Weight 76.2 kg; ll1 Height 5 ft. 0 in. (152.40 cm); Pain 9/10; 07:54 Body Mass Index 32.81 (76.20 kg, 152.40 cm) ll1 ED Course: 07:46 Patient arrived in ED. mr 07:51 Richard Castillo NP is PHCP. pm1 07:51 Deric Maloney MD is Attending Physician. pm1 07:54 Sarina Bess, JESI is Primary Nurse. ll1 07:54 Arm band placed on Patient placed in an exam room, on a stretcher. ll1 07:56 Triage completed. ll1 07:57 Patient has correct armband on for positive identification. Bed in low position. Call ll1 light in reach. Cardiac monitoring not applicable on this patient. 08:07 Strep Sent. ll1 08:07 COVID-19/FLU A+B Sent. ll1 10:17 No provider procedures requiring assistance completed. Patient did not have IV access ss during this emergency room visit. Administered Medications: 08:04 Drug: Ibuprofen 600 mg Route: PO; ll1 10:01 Follow up: Response: No adverse reaction ll1 09:55 Drug: Decadron (dexamethasone) 10 mg Route: IM; Site: right vastus lateralis; ll1 Medication: 07:57 VIS not applicable for this client. ll1 Outcome: 09:44 Discharge ordered by MD. pm1 10:17 Discharged to home ambulatory. ss 10:17 Condition: good 10:17 Demonstrated understanding of instructions, follow-up care. 10:19 Patient left the ED. ss Signatures: Kathia Klein mr Catherine Ash, RN RN ss Richard Castillo, KIMBERLEE PERFORMANCE TEST ARCHITECT pm1 Sarina Bess RN RN ll1
[2022-04-03] MEDS ORDERED: dexAMETHasone 10 MG/ML VIAL ONE (09:57)
[2022-04-03 10:29] VITALS: BP 134/90; TEMP 98.7; O2SAT 100
== END 2022-04-03 10:19 | disposition home or self-care (01) ==
LOC: ER 07:44
DX: J02.9 Acute pharyngitis, unspecified (principal); Z20.822 Contact with and (suspected) exposure to COVID-19
CPT/HCPCS: 87070; 87081; 0240U; J1100; 96372; 99283

== ENCOUNTER 2022-04-14 18:47 | Emergency (ER) | payer OTHER ==
--- OUTSIDE RECORDS SUMMARY | 2022-04-14 18:50 | XMS REPORT | Continuity of Care Document ---
:2000 Author Organization [facility] t Address 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 lawrence Branch Allergies, Adverse Reactions, Alerts Allergy Allergy Status Severity Reaction(s) Onset Inactive Treating Comm ents Source Name Type Date Date Clinician NO KNOWN Drug Active [facility] ALLERGIE Class ity of [facility] [place] [facility] Social History Social Habit Start Date Stop Date Quantity Comments Source Exposure to 2022-02-27 2022-03-09 Not sure [facility] SARS-CoV-2 (event) 00:00:00 08:36:00 Medica l Branch Sex Assigned At [birth year] [facility] 00:00:00 00:00:00 Medical Branch Smoking Status Start Date Stop Date Source Tobacco smoking consumption [facility] Medical unknown Branch Medications Ordered Filled Start Stop Current Ordering Indication Dosage Frequency Signature Comments Components Source Medication Medication Date Date Medication? Clinician (SIG) Name Name FLUTICASONE Yes Use in Univ ers PROPIONATE 7-02 each ity of (FLONASE 14:00: nostril. [place] NASAL) [address] [place] [id number] CETIRIZINE Yes Take by Univ ers HCL (ZYRTEC 7-02 mouth. ity of ORAL) 14:00: [address] FLUTICASONE Yes Use in Univ ers PROPIONATE 7-02 each ity of (FLONASE 14:00: nostril. [place] NASAL) [address] [place] [id number] CETIRIZINE Yes Take by Univ ers HCL (ZYRTEC 7-02 mouth. ity of ORAL) 14:00: [address] FLUTICASONE 2018- Yes Use in Univ ers PROPIONATE 7-02 each ity of (FLONASE 14:00: nostril. [place] NASAL) [address] [place] [id number] CETIRIZINE Yes Take by Univ ers HCL (ZYRTEC 7-02 mouth. ity of ORAL) 14:00: [address] Branch FLUTICASONE 2018- Yes Use in Univ ers PROPIONATE 7-02 each ity of (FLONASE 14:00: nostril. [place] NASAL) [address] [place] [id number] CETIRIZINE Yes Take by Univ ers HCL (ZYRTEC 7-02 mouth. ity of ORAL) 14:00: [address] FLUTICASONE 2019- Yes Use in Univ ers PROPIONATE 7-02 each ity of (FLONASE 14:00: nostril. [place] NASAL) [address] [place] [address] CETIRIZINE Yes Take by Univ ers HCL (ZYRTEC 7-02 mouth. ity of ORAL) 14:00: [address] FLUTICASONE Yes Use in Univ ers PROPIONATE 7-02 each ity of (FLONASE 14:00: nostril. [place] NASAL) [address] [place] [address] CETIRIZINE Yes Take by Univ ers HCL (ZYRTEC 7-02 mouth. ity of ORAL) 14:00: [address] FLUTICASONE Yes Use in Univ ers PROPIONATE 7- each ity of (FLONASE 14:00: nostril. [place] NASAL) [address] [place] [id number] CETIRIZINE Yes Take by Univ ers HCL (ZYRTEC 7-02 mouth. ity of ORAL) 14:00: [address] Procedures Procedure Date / Time Performing Clinician Source Performed AUTHORIZATION FOR 2021-12-12 05:01:00 Doctor Unassigned, No [facility] RELEASE OF PHI Name [facility] Branch Encounters Start End Encounter Admission Attending Care Care Encounter Source Date/Time Date/Time Type Type Clinicians Facility Department ID 2022-03-09 2022-03-09 Outpatient R WILBERTO [facility] [id number] Univers 08:30:00 11:06:58 TERESA ity [facility] 2022-03-09 2022-03-09 Ancillary Screening/Hack, [employer] [facility] 1.2.840.114 [id number] Univers 08:30:00 11:06:58 Visit Teresa Ladd [id number] ity of [facility] [id number] [facility] as BANK [phone] [facility] BLDG. 141 Branch 2022-03-08 2022-03-08 Outpatient R [facility] [id number] Univers 11:00:00 11:00:00 ity of [facility] [place] 2022-03-08 2022-03-08 Outpatient R [facility] [id number] Univers 11:00:00 11:00:00 ity [facility] 2021-12-12 2021-12-12 Orders Doctor ARIPTA 1.2.840.114 [id number] Univers 00:00:00 00:00:00 Only Unassigned, MALIK [id number] ity of [place] [facility] [id number] [place] as [phone] [facility] [address] [place] 2021-11-02 2021-11-02 Ancillary HebertKathia [facility] 1.2.840.1 [id number] Univers 11:00:00 11:30:00 Visit Teresa Ladd [id number] ity of [place] [id number] [place] as BANK [phone] [facility]. [address] [place] 2021-11-02 2021-11-02 Outpatient R WILBERTO [facility] [id number] Univers 11:00:00 11:00:00 TERESA ithussain [facility] 2021-10-25 2021-10-25 Telephone Screening/H [facility] 1.2.840.114 [id number] Univers 00:00:00 00:00:00 Sia perdomo [id number] ity of Audio [facility] [id number] [place] [phone] [facility] [address] [place] 2021-07-20 2021-07-20 Outpatient R TAMI [facility] [id number] Univers 10:30:00 11:50:54 CAREN ity of [facility] [place] 2021-07-20 2021-07-20 Ancillary Mary Dickerson [facility] 1. 2.840.114 [id number] Univers 10:30:00 11:50:54 Visit Caren Wilson Hussain [id number] ity of [place] [id number] [place] as BANK [phone] [facility]. [address] [place] 2021-06-14 2021-06-14 Telephone Kat [facility] 1.2.057.000 [id number] Univers 00:00:00 00:00:00 She GE [id number] ity of [place]2.[place] [phone] [address] 2021-05-05 2021-05-05 Outpatient R WILBERTO [facility] [id number] Univers 09:00:00 09:12:58 [facility] 2021-05-05 2021-05-05 Ancillary Surface, [facility] 1.2 .840.114 [id number] Univers 09:00:00 09:12:58 Visit Ladd, Teresa Rock [id number] ity of [facility] [id number] [place] as BANK [phone] [facility]. [address] 2021-05-05 2021-05-05 Outpatient R WILBERTO [facility] [id number] Univers 08:30:00 09:12:29 TERESA ithussain [facility] 2021-05-05 2021-05-05 Ancillary Surface, [facility] 1.2 .840.114 [id number] Univers 08:30:00 09:12:29 Visit Teresa Ladd [id number] ity of [facility] 4.2.7.2.686 [place] as BANK [phone] [facility]. [address] 2021-05-05 2021-05-05 Orders Doctor ARPITA 1.2.840.114 [id number] Univers 00:00:00 00:00:00 Only Unassigned, MALIK [id number] ity of [place] [facility] [id number] [place] as [phone] [facility] 009 [address] 2021-04-26 2021-04-26 Telephone Kat [facility] [id number] Univers 00:00:00 00:00:00 She GE [id number] ity of [facility] 4[place].7.2.[place] [phone] [facility] [address] [place] 2021-03-23 2021-03-23 [facility] [id number] Univers 09:00:00 10:11:13 [facility] 2021-03-23 2021-03-23 Ancillary Nina Mathias [facility] 1.2.84 0.114 [id number] Univers 09:00:00 10:11:13 Visit Teresa Ladd Y [id number] ity of [place] 4.2.7.2.686 [place] as BANK [phone] [facility]. [address] [place] 2021-02-24 2021-02-24 [facility] [id number] Univers 08:30:00 08:30:00 [facility] 2020-06-17 2020-06-17 Ancillary Sharmila Luque [facility] 1.2.840.11 [id number] Univers 15:17:52 15:59:55 Visit Jose Agrawal Y [id number] ity of Mary Dickerson [place] 4.2.7.2.686 [place] BANK [phone] [facility]. [address] [place] 2020-06-17 2020-06-17 Outpatient R TUAN [facility] [id number] Univers 15:00:00 15:00:00 MARY [facility] 2019-03-20 2019-06-25 Ancillary Screening/Ashley, [facility] Audio UN IVERSIT 1.2.840.114 [id number] Univers 13:14:54 14:47:47 Visit Teresa Ladd Y [id number] ity of [place] 4.2.7.2.686 [place] as BANK [phone] [facility]. [address] [place] 2019-05-15 2019-05-15 Ancillary Mary Dickerson [facility] 1. 2.840.114 [id number] Univers 09:45:21 10:15:21 Visit Teresa Ladd Y [id number] ity of [place] 4.2.7.2.686 [place] as BANK [phone] [facility]. [address] [place] 2019-05-15 2019-05-15 Pal Rushing [facility]ERS[facility] [id number] Univers 00:00:00 00:00:00 (Out) Audio Sound Y [id number] ity of Suite [place] 4.2.7.2.686 [place] as BANK [phone] [facility] [address] 2019-03-20 2019-03-20 Outpatient [facility] [id number] Univers 16:00:00 16:00:00 TERESA ity of [facility] 2019-01-09 2019-01-09 Orders Doctor ARPITA 1.2.840.114 [id number] Univers 00:00:00 00:00:00 Only Unassigned, MALIK 350.1.13.10 ity of [place] [facility] 4.2.7.2.686 [place] as [phone] [facility] 00[address] 2018-12-15 2018-12-[address] [facility] [id number] Univers 00:00:00 00:00:00 She GE 350.1.13.10 ity of [facility] 4[place].7.2.[place] [phone] [facility] [address] 2018-11-07 2018-11-07 Ancillary DIVYA [place] 1.2.840.114 [id number] Univers 12:39:33 13:39:33 Visit Mary Rock [id number] ity of [facility] [id number] [place] as BANK [phone] [facility]. [address] 2018-11-06 2018-11-[address] [facility] [id number] Univers 00:00:00 00:00:00 Management Mary GE [id number] ity of [facility] 4[place]2.7.2.[place] [phone] [facility] [address] 2010-07-27 2010-07-27 Orders Doctor ARPITA 1.2.840.114 [id number] Univers 00:00:00 00:00:00 Only Unassigned, MALIK 350.1.13.10 ity of [place] [facility] 4.2.7.2.686 [place] as [phone] [facility] 009 Branch Results This patient has no known results.
--- NOTE | 2022-04-14 20:03 | EDPHYS ---
Physician Documentation [facility] Name: Betty Dupree Age: 21 yrs Sex: Female : 2000 Arrival Date: 04/14/2022 Time: 18:47 Bed Waiting Private MD: ED Physician Selena Desai HPI: 04/15 00:02 This 21 yrs old Black Female presents to ER via Ambulatory with complaints of Cough, kb Congestion, Ear Pain. 00:02 The patient presents with a fullness, pain. The complaints affect the right ear and kb left ear. The patient has not experienced similar symptoms in the past. The patient has not recently seen a physician. Patient reports ear pain bilaterally and feels like there is fluid in the ear causing decreased hearing.. 00:02 Onset: The symptoms/episode began/occurred yesterday. Modifying factors: The symptoms kb are alleviated by nothing, the symptoms are aggravated by nothing. Associated signs and symptoms: The patient has no apparent associated signs or symptoms. Severity of symptoms: At their worst the symptoms were moderate in the emergency department the symptoms are unchanged. Historical: - Allergies: 04/14 20:05 No Known Allergies; aa9 - Home Meds: 20:05 None [Active]; aa9 - PMHx: 20:05 hearing aids; Hearing Loss; aa9 - PSHx: 20:05 Tonsillectomy; aa9 - Immunization history:: Client reports receiving the 2nd dose of the Covid vaccine. - Social history:: Smoking status: Patient denies any tobacco usage or history of. ROS: 04/15 00:02 Constitutional: Negative for fever, chills, and weight loss. kb ENT: Positive for ear pain. Neuro: Positive for headache. All other systems are negative. Exam: 00:02 Constitutional: This is a well developed, well nourished patient who is awake, alert, kb and in no acute distress. Head/Face: Normocephalic, atraumatic. Cardiovascular: Regular rate and rhythm with a normal S1 and S2. No gallops, murmurs, or rubs. No pulse deficits. Respiratory: Respirations even and unlabored. No increased work of breathing. Talking in full sentences Abdomen/GI: Soft, non-tender. No distention Skin: Warm, dry with normal turgor. Normal color. MS/ Extremity: Pulses equal, no cyanosis. Neurovascular intact. Full, normal range of motion. Neuro: Awake and alert, GCS 15, oriented to person, place, time, and situation. Moves all extremities. Normal gait. Psych: Awake, alert, with orientation to person, place and time. Behavior, mood, and affect are within normal limits. 00:02 ENT: TM's: bulging, on the left, erythema, that is moderate, on the left, Examination of the other ear shows no obvious abnormality. Vital Signs: 04/14 20:00 Pulse 88; Resp 22; Temp 98.1; Pulse Ox 100% on R/A; Weight 74.84 kg; Height 5 ft. 0 in. aa9 (152.40 cm); Pain 10/10; 20:06 BP 151 / 92; aa9 20:00 Body Mass Index 32.22 (74.84 kg, 152.40 cm) aa9 MDM: 20:01 Patient medically screened. kb 04/15 00:01 Data reviewed: vital signs, nurses notes. Data interpreted: Pulse oximetry: on room air kb is 100 %. Interpretation: normal. Counseling: I had a detailed discussion with the patient and/or guardian regarding: the historical points, exam findings, and any diagnostic results supporting the discharge/admit diagnosis, the need for outpatient follow up, a family practitioner, to return to the emergency department if symptoms worsen or persist or if there are any questions or concerns that arise at home. 00:03 ED course: History obtained from: Patient. kb Administered Medications: No medications were administered Disposition Summary: 04/14/22 20:03 Discharge Ordered Location: Home kb Condition: Stable kb Diagnosis - Otitis media, unspecified, left ear kb Followup: kb - With: Emergency Department - When: As needed - Reason: Worsening of condition Followup: kb - With: Private Physician - When: 2 - 3 days - Reason: Recheck today's complaints, Continuance of care, Re-evaluation by your physician Discharge Instructions: - Discharge Summary Sheet kb - Otitis Media, Adult, [id number] kb Forms: - Medication Reconciliation Form kb - Thank You Letter kb - Antibiotic Education kb - Prescription Opioid Use kb Prescriptions: - Amoxicillin 875 mg Oral Tablet - take 1 tablet by ORAL route every 12 hours for 10 days; 20 tablet; Refills: 0, kb Product Selection Permitted Signatures: Johana Rivera TIE INSPECTOR-C TIE INSPECTOR-Ckb Alanna Siegel, RN RN aa9
--- NOTE | 2022-04-14 20:12 | ER ---
Nurse's Notes [facility] Name: Betty Dupree Age: 21 yrs Sex: Female : 2000 Arrival Date: 04/14/2022 Time: 18:47 Bed Waiting Private MD: Diagnosis: Otitis media, unspecified, left ear Presentation: 04/14 20:00 Chief complaint: Patient states: I usually wear hearing aids and when I blow my nose I aa9 hear like a liquid in both ears and now I have a migraine now. I don't have my hearing aids in now. Coronavirus screen: Vaccine status: Patient reports receiving the 2nd dose of the covid vaccine. Ebola Screen: No symptoms or risks identified at this time. Initial Sepsis Screen: Does the patient meet any 2 criteria? No. Patient's initial sepsis screen is negative. Does the patient have a suspected source of infection? No. Patient's initial sepsis screen is negative. Risk Assessment: Do you want to hurt yourself or someone else? Patient reports no desire to harm self or others. Onset of symptoms was April 14, 2022. 20:00 Method Of Arrival: Ambulatory aa9 20:00 Acuity: NANDO 4 aa9 Triage Assessment: 20:06 General: Appears in no apparent distress. Behavior is calm, cooperative, appropriate aa9 for age. Pain: Complains of pain in right ear and left ear Pain does not radiate. Pain currently is 10 out of 10 on a pain scale. EENT:. Neuro: Level of Consciousness is awake, alert, obeys commands, Oriented to person, place, time, situation. Cardiovascular: No deficits noted. Respiratory: Airway is patent Respiratory effort is even, unlabored. GI: No signs and/or symptoms were reported involving the gastrointestinal system. : No signs and/or symptoms were reported regarding the genitourinary system. Historical: - Allergies: 20:05 No Known Allergies; aa9 - Home Meds: 20:05 None [Active]; aa9 - PMHx: 20:05 hearing aids; Hearing Loss; aa9 - PSHx: 20:05 Tonsillectomy; aa9 - Immunization history:: Client reports receiving the 2nd dose of the Covid vaccine. - Social history:: Smoking status: Patient denies any tobacco usage or history of. Screenin:07 Abuse screen: Denies threats or abuse. Denies injuries from another. Nutritional aa9 screening: No deficits noted. Tuberculosis screening: No symptoms or risk factors identified. 20:07 [facility] ED Fall Risk Assessment (Adult) History of falling in the last 3 months, aa9 including since admission No falls in past 3 months (0 pts) Confusion or Disorientation No (0 pts) Intoxicated or Sedated No (0 pts) Impaired Gait No (0 pts) Mobility Assist Device Used No (0 pt) Altered Elimination No (0 pt) Score/Fall Risk Level 0 - 2 = Low Risk. Vital Signs: 20:00 Pulse 88; Resp 22; Temp 98.1; Pulse Ox 100% on R/A; Weight 74.84 kg; Height 5 ft. 0 in. aa9 (152.40 cm); Pain 10/10; 20:06 BP 151 / 92; aa9 20:00 Body Mass Index 32.22 (74.84 kg, 152.40 cm) aa9 ED Course: 18:47 Patient arrived in ED. am2 18:50 Johana Rivera FNP-C is [facility]. kb 18:50 Robert Martinez MD is Attending Physician. kb 19:44 Selena Desai MD is Attending Physician. kb 20:05 Triage completed. aa9 20:07 Arm band placed on right wrist. aa9 20:07 Patient has correct armband on for positive identification. aa9 20:07 No provider procedures requiring assistance completed. Patient did not have IV access aa9 during this emergency room visit. Administered Medications: No medications were administered Medication: 20:07 VIS not applicable for this client. aa9 Outcome: 20:03 Discharge ordered by . kb 20:09 Discharged to home ambulatory. aa9 20:09 Condition: stable 20:11 Discharge instructions given to patient, family, Instructed on discharge instructions, aa9 follow up and referral plans. medication usage, Demonstrated understanding of instructions, follow-up care, medications, Prescriptions given X 1. 20:11 Patient left the ED. aa9 Signatures: Johana Rivera FNP-C FNP-Cindy Ferguson am2 Alanna Siegel, RN RN aa9
[2022-04-14 20:16] VITALS: TEMP 98.1; O2SAT 100
[2022-04-14 20:17] VITALS: BP 151/92
== END 2022-04-14 20:11 | disposition home or self-care (01) ==
LOC: ER 18:47
DX: H66.92 Otitis media, unspecified, left ear (principal)
CPT/HCPCS: 99282